=== PATIENT | male | born 1960 | race Caucasian/White ===

== ENCOUNTER 2022-05-13 21:06 | Emergency (ER) | payer BC, OTHER ==
[2022-05-13 21:31] VITALS: TEMP 97.9
--- NOTE | 2022-05-13 21:41 | ED ---
General Adult HPI - General Chief complaint: Abdominal Pain Stated complaint: Abdominal Pain, Jaundice Time Seen by Provider: 05/13/22 21:19 Source: patient, EMS Mode of arrival: EMS Limitations: no limitations - History of Present Illness Initial comments: Dictation was produced using [employer] dictation software. please excuse any grammatical, word or spelling errors. Chief Complaint: 61-year-old male presents to the emergency department for 3 years of jaundice History of Present Illness: 61-year-old male he is had multiple bouts of right upper quadrant pain over the last 3-4 days. Patient was at work when his coworkers started telling him that he looked yellow. He went home after work today and size who told patient to come to the emergency department. Patient has history of gallstones. He has history of splenectomy. Patient has no history of liver disease or gallbladder disease. He is up-to-date with his splenectomy vaccinations. Patient complains of pain in the right upper quadrant that has been intermittent. Denies any fever or chills. No constitutional symptoms. No nausea or vomiting. The ROS documented in this emergency department record has been reviewed and confirmed by me. Those systems with pertinent positive or negative responses have been documented in the HPI. All other systems are other negative and/or noncontributory. PHYSICAL EXAM: General Impression: Alert and oriented x3, not in acute distress HEENT: Normocephalic atraumatic, extra-ocular movements intact, pupils equal and reactive to light bilaterally, mucous membranes moist. Cardiovascular: Heart regular rate and rhythm Chest: Able to complete full sentences, no retractions, no tachypnea Abdomen: abdomen soft, , negative Regan sign, palpatory tenderness to the right upper quadrant non-distended, no organomegaly Musculoskeletal: Pulses present and equal in all extremities, no peripheral edema Motor: no focal deficits noted Neurological: CN II-XII grossly intact, no focal motor or sensory deficits noted Skin: Intact with no visualized rashes Psych: Normal affect and mood ED course: 61-year-old male presents emergency department for acute onset jaundice and right upper quadrant abdominal pain. He was told that he has history of gallstones. Vital signs upon arrival are within acceptable limits. Laboratory evaluation obtained. CBC is unremarkable. Coag panel is negative. Metabolic panel is within acceptable limits. Abdominal lab shows bilirubinemia with elevated liver enzymes suggesting biliary obstruction abdominal ultrasound shows CBD measuring 1.5 cm. There is as appear to be multiple gallstones. We do not have GI or facility for the time being. Discussed with Dr. De Anda and [facility] was went except patient's care. Patient reevaluated bedside 11:30 PM found to be in stable medical condition. Patient agreeable to transfer. - Related Data Home Medications Medication Instructions Recorded Confirmed Bisoprolol-Hctz 10-6.25 mg [Ziac 1 tab PO DAILY 05/13/22 05/13/22 10-6.25 MG] Sildenafil Citrate 100 mg PO DAILY PRN 05/13/22 05/13/22 Allergies Allergy/AdvReac Type Severity Reaction Status Date / Time No Known Allergies Allergy Verified 05/13/22 22:35 Review of Systems ROS Statement: Those systems with pertinent positive or pertinent negative responses have been documented in the HPI. ROS Other: All systems not noted in ROS Statement are negative. Past Medical History Past Medical History: Hypertension History of Any Multi-Drug Resistant Organisms: None Reported Past Surgical History: Orthopedic Surgery Past Psychological History: No Psychological Hx Reported Smoking Status: Current every day smoker Past Alcohol Use History: Occasional Past Drug Use History: None Reported General Exam Limitations: no limitations Course Vital Signs 05/13/22 21:27 Temperature 97.9 F Pulse Rate 60 Respiratory 17 Rate Blood Pressure 141/91 O2 Sat by Pulse 96 Oximetry Medical Decision Making - Lab Data Result diagrams: 05/13/22 21:30 05/13/22 21:30 Lab Results 05/13/22 05/13/22 05/13/22 Range/Units 21:30 21:30 21:30 WBC 8.3 (3.8-10.6) k/uL RBC 5.29 (4.30-5.90) m/uL Hgb 18.3 H (13.0-17.5) gm/dL Hct 55.3 H (39.0-53.0) % MCV 104.5 H (80.0-100.0) fL MCH 34.5 (25.0-35.0) pg MCHC 33.0 (31.0-37.0) g/dL RDW 15.7 H (11.5-15.5) % Plt Count 291 (150-450) k/uL MPV 8.8 Neutrophils % 59 % Lymphocytes % 27 % Monocytes % 8 % Eosinophils % 5 % Basophils % 1 % Neutrophils # 4.9 (1.3-7.7) k/uL Lymphocytes # 2.2 (1.0-4.8) k/uL Monocytes # 0.7 (0-1.0) k/uL Eosinophils # 0.4 (0-0.7) k/uL Basophils # 0.1 (0-0.2) k/uL Macrocytosis Moderate PT 12.4 H (9.0-12.0) sec INR 1.2 H (<1.2) APTT 25.7 (22.0-30.0) sec Sodium 137 (137-145) mmol/L Potassium 4.5 (3.5-5.1) mmol/L Chloride 104 (98-107) mmol/L Carbon Dioxide 17 L (22-30) mmol/L Anion Gap 16 mmol/L BUN 13 (9-20) mg/dL Creatinine 0.84 (0.66-1.25) mg/dL Est GFR (CKD-EPI)AfAm >90 (>60 ml/min/1.73 sqM) Est GFR (CKD-EPI)NonAf >90 (>60 ml/min/1.73 sqM) Glucose 85 (74-99) mg/dL Plasma Lactic Acid Eduardo (0.7-2.0) mmol/L Calcium 9.0 (8.4-10.2) mg/dL Magnesium 1.8 (1.6-2.3) mg/dL Total Bilirubin 9.9 H (0.2-1.3) mg/dL Conjugated Bilirubin 5.2 H (0.0-0.3) mg/dL Unconjugated Bilirubin 2.7 H (0.0-1.1) mg/dL Delta Bilirubin 2.0 H (0.0-0.2) mg/dL AST 248 H (17-59) U/L ALT 273 H (4-49) U/L Alkaline Phosphatase 238 H (38-126) U/L Total Protein 7.7 (6.3-8.2) g/dL Albumin 4.3 (3.5-5.0) g/dL Lipase 95 (23-300) U/L 05/13/22 Range/Units 21:30 WBC (3.8-10.6) k/uL RBC (4.30-5.90) m/uL Hgb (13.0-17.5) gm/dL Hct (39.0-53.0) % MCV (80.0-100.0) fL MCH (25.0-35.0) pg MCHC (31.0-37.0) g/dL RDW (11.5-15.5) % Plt Count (150-450) k/uL MPV Neutrophils % % Lymphocytes % % Monocytes % % Eosinophils % % Basophils % % Neutrophils # (1.3-7.7) k/uL Lymphocytes # (1.0-4.8) k/uL Monocytes # (0-1.0) k/uL Eosinophils # (0-0.7) k/uL Basophils # (0-0.2) k/uL Macrocytosis PT (9.0-12.0) sec INR (<1.2) APTT (22.0-30.0) sec Sodium (137-145) mmol/L Potassium (3.5-5.1) mmol/L Chloride (98-107) mmol/L Carbon Dioxide (22-30) mmol/L Anion Gap mmol/L BUN (9-20) mg/dL Creatinine (0.66-1.25) mg/dL Est GFR (CKD-EPI)AfAm (>60 ml/min/1.73 sqM) Est GFR (CKD-EPI)NonAf (>60 ml/min/1.73 sqM) Glucose (74-99) mg/dL Plasma Lactic Acid Eduardo 1.2 (0.7-2.0) mmol/L Calcium (8.4-10.2) mg/dL Magnesium (1.6-2.3) mg/dL Total Bilirubin (0.2-1.3) mg/dL Conjugated Bilirubin (0.0-0.3) mg/dL Unconjugated Bilirubin (0.0-1.1) mg/dL Delta Bilirubin (0.0-0.2) mg/dL AST (17-59) U/L ALT (4-49) U/L Alkaline Phosphatase (38-126) U/L Total Protein (6.3-8.2) g/dL Albumin (3.5-5.0) g/dL Lipase (23-300) U/L Disposition Clinical Impression: Biliary obstruction Disposition: OTHER INSTITUTION NOT DEFINED Condition: Fair Referrals: Crystal Pimentel DO [Primary Care Provider] - 1-2 days Time of Disposition: 23:24 - Out of Hospital Transfer - Req. Specs Out of Hospital Transfer - Requested Specifics: Other Emergency Center ([facility])
--- NOTE | 2022-05-13 22:12 | US ---
EXAMINATION TYPE: US abdomen limited DATE OF EXAM: 05/13/2022 COMPARISON: NONE CLINICAL HISTORY: jaundice, RUQ pain. jaundice, ruq pain x 4 days TECHNIQUE: Multiple sonographic images of the right upper quadrant are obtained. FINDINGS: EXAM MEASUREMENTS: Liver Length: 20.6 cm Gallbladder Wall: 0.47 cm CBD: 1.5 cm Right Kidney: 11.8 x 5.3 x 5.9 cm SUBMARINE WORKER NOTES: Pancreas: Obscured by bowel gas Liver: cyst seen in left lobe measuring 1.4 x 1.8 x 1.8 cm. Heterogeneous and increased attenuation. Focal fatty sparing adjacent to GB measuring 1.7 x 2.3 x 3.0 cm Gallbladder: Multiple gallstones seen near neck of GB Evidence for sonographic Regan's sign: No CBD: Dilated CBD, partially limited due to bowel gas Right Kidney: wnl IMPRESSION: Cholelithiasis. Large gallbladder. Common bile duct is large. The possibility of obstructing distal c ommon bile duct stone should be considered in view of a dilated common bile duct
[2022-05-13 22:43] LABS: ALT 273 U/L (4-49); AST 248 U/L (17-59); African American GFR (CKD) >90 (>60 ml/min/1.73 sqM); Albumin 4.3 g/dL (3.5-5.0); Alkaline Phosphatase 238 U/L (38-126); Anion Gap 16 mmol/L; Bilirubin, Conjugated 5.2 mg/dL (0.0-0.3); Bilirubin,Unconjugated 2.7 mg/dL (0.0-1.1); Blood Urea Nitrogen 13 mg/dL (9-20); Carbon Dioxide 17 mmol/L (22-30); Chloride 104 mmol/L (98-107); Glucose 85 mg/dL (74-99); Lipase 95 U/L (23-300); Magnesium 1.8 mg/dL (1.6-2.3); Non-African American GFR(CKD) >90 (>60 ml/min/1.73 sqM); Potassium 4.5 mmol/L (3.5-5.1); Sodium 137 mmol/L (137-145); Total Bilirubin 9.9 mg/dL (0.2-1.3); Total Protein 7.7 g/dL (6.3-8.2)
[2022-05-13 22:44] LABS: Basophils # (A) 0.1 k/uL (0-0.2); Basophils % (A) 1 %; Eosinophils # (A) 0.4 k/uL (0-0.7); Eosinophils % (A) 5 %; HGB 18.3 gm/dL (13.0-17.5); Lymphocytes # (A) 2.2 k/uL (1.0-4.8); Lymphocytes % (A) 27 %; MCH 34.5 pg (25.0-35.0); MCV 104.5 fL (80.0-100.0); Macrocytosis Moderate; Mean Platelet Volume 8.8; Monocytes # (A) 0.7 k/uL (0-1.0); Monocytes % (A) 8 %; Neutrophils # (A) 4.9 k/uL (1.3-7.7); Neutrophils % (A) 59 %; Platelet Count 291 k/uL (150-450); RBC 5.29 m/uL (4.30-5.90); RDW 15.7 % (11.5-15.5); WBC 8.3 k/uL (3.8-10.6)
[2022-05-13 22:49] LABS: HCT 55.3 % (39.0-53.0)
[2022-05-13 23:10] LABS: INR 1.2 (<1.2); Partial Thromboplastin Time 25.7 sec (22.0-30.0); Prothrombin Time 12.4 sec (9.0-12.0)
[2022-05-13 23:45] VITALS: RESP 16
[2022-05-14 01:43] VITALS: BP 133/71; PULSE 78
== END 2022-05-14 01:44 | disposition other institution (70) ==
LOC: EC 21:06
DX: K83.1 Obstruction of bile duct (principal); I10 Essential (primary) hypertension; F17.200 Nicotine dependence, unspecified, uncomplicated
CPT/HCPCS: 36415; 76705; 80053; 82248; 83605; 83690; 83735; 85025; 85610; 85730; 93005; 99284